=== PATIENT | female | born 1975 | race Caucasian/White ===

== ENCOUNTER 2017-08-03 22:25 | Emergency (ER) | payer MEDICAID, OTHER ==
[~2017-08-03] VITALS: Ht 174 cm; Wt 75.8 kg
[2017-08-03 23:42] VITALS: BP 123/79
== END 2017-08-04 00:16 | disposition home or self-care (01) ==
LOC: ED 23:55
DX: J20.8 Acute bronchitis due to other specified organisms (principal)
CPT/HCPCS: 93005; 99283

== ENCOUNTER 2018-02-05 15:42 | Emergency (ER) | payer SELFPAY ==
[~2018-02-05] VITALS: Ht 172.7 cm; Wt 70.4 kg
[2018-02-05] MEDS ORDERED: HYDROcodone/APAP 5/325 TABLET ONE (16:47)
[2018-02-05 16:58] LABS: CLUE CELLS PRESENT (NONE SEEN); WET PREP WBCS FEW (FEW)
[2018-02-05] MEDS ORDERED: HYDROcodone/APAP 5/325 TABLET PO ONE (17:00)
[2018-02-05 17:18] LABS: HCG UR SG 1.031 (1.003-1.030)
[2018-02-05] MEDS ORDERED: CEFTRIAXONE 250 MG IM ONE (17:30)
[2018-02-05] MEDS ORDERED: AZITHROMYCIN 500 MG TABLET PO ONE (17:30)
[2018-02-05] MEDS ORDERED: metroNIDAZOLE 500 MG TABLET PO ONE (17:30)
[2018-02-05] MEDS ORDERED: AZITHROMYCIN 250 MG TABLET ONE (17:34)
[2018-02-05] MEDS ORDERED: CEFTRIAXONE 1,000 MG ONE (17:34)
[2018-02-05] MEDS ORDERED: metroNIDAZOLE 500 MG TABLET ONE (17:34)
[2018-02-05 17:39] VITALS: BP 139/95
[2018-02-05 17:41] LABS: MICROSCOPIC INDICATED
[2018-02-05 17:42] LABS: CULTURE INDICATED? YES
== END 2018-02-05 18:32 | disposition home or self-care (01) ==
LOC: ED 18:20
DX: K08.89 Other specified disorders of teeth and supporting structures (principal); N76.0 Acute vaginitis; A59.9 Trichomoniasis, unspecified
CPT/HCPCS: 81001; 81025; 87086; 87210; 87491; 87591; 87808; 96372; 99284; J0696

== ENCOUNTER 2018-02-06 19:12 | Emergency (ER) | payer SELFPAY ==
[~2018-02-06] VITALS: Ht 172.7 cm; Wt 70.3 kg
[2018-02-06 19:21] VITALS: BP 136/87
[2018-02-06] MEDS ORDERED: BUPIVACAINE 0.25% ONE (19:45)
[2018-02-06] MEDS ORDERED: LIDOCAINE-MPF 1%, 5ML ONE (19:46)
[2018-02-06] MEDS ORDERED: SODIUM CHLORIDE FLUSH 10ML SYR IVF ONE (20:00)
[2018-02-06] MEDS ORDERED: AMPICILLIN/SULBACTAM 3 GM in SODIUM CHLORIDE 0.9% 100 ML IVPB ONE (20:00)
[2018-02-06] MEDS ORDERED: LIDOCAINE 2%, 20ML SQ ONE (20:00)
[2018-02-06] MEDS ORDERED: BUPIVACAINE/PF-EPI 0.25% 1:200K SQ ONE (20:00)
[2018-02-06] MEDS ORDERED: LIDOCAINE-MPF 2% ,5ML ONE (20:05)
== END 2018-02-06 21:17 | disposition home or self-care (01) ==
LOC: ED 21:11
DX: K04.7 Periapical abscess without sinus (principal)
CPT/HCPCS: 41800; 96365; 96372; 99284; J0295; J3490